=== PATIENT | female | born 1940 | race Caucasian/White ===

== ENCOUNTER → 2020-02-29 | Outpatient (CLI) | payer MEDICARE, OTHER ==
[~2020-02-29] MED LIST: ALDACTONE25 MG PO; ANAFRANIL50 MG PO; ASPIR 8181 MG PO; AZOR 10-40 MG1 EACH PO; BENADRYL25 MG PO; CLONAZEPAM 0.50.5 M1 PO; CLONIDINE0.1 PO; COREG25 MG PO; FLEXERIL PO; GEODON80 MG PO; LAMICTAL100 MG PO; NORCO 10-325 T1 EACH PO; PAMELOR50 MG PO; PAXIL CR37.5 MG PO
== END ==
LOC: M.RAD 14:47
PROVIDERS: ATTEND Family Medicine
DX: M81.8 Other osteoporosis without current pathological fracture (principal); M95.4 Acquired deformity of chest and rib

== ENCOUNTER → 2020-09-24 | Outpatient (CLI) | payer MEDICARE, OTHER | LOC: M.RAD 14:21 | PROVIDERS: ATTEND Family Medicine | DX: M48.061 Spinal stenosis, lumbar region without neurogenic claudication (principal); M25.78 Osteophyte, vertebrae; M85.88 Other specified disorders of bone density and structure, other site ==

== ENCOUNTER → 2020-10-02 | Outpatient (CLI) | payer MEDICARE, OTHER | LOC: M.MRI 10-01 17:30 | PROVIDERS: ATTEND Family Medicine | DX: S32.000A Wedge compression fracture of unspecified lumbar vertebra, initial encounter for closed fracture (principal); M48.04 Spinal stenosis, thoracic region; M51.37 Other intervertebral disc degeneration, lumbosacral region; M48.061 Spinal stenosis, lumbar region without neurogenic claudication; M47.816 Spondylosis without myelopathy or radiculopathy, lumbar region; X58.XXXA Exposure to other specified factors, initial encounter; Y93.89 Activity, other specified; Y92.89 Other specified places as the place of occurrence of the external cause; Y99.8 Other external cause status ==

== ENCOUNTER → 2021-01-07 | Outpatient (CLI) | payer MEDICARE, OTHER | LOC: M.ULTRA 16:08 | PROVIDERS: ATTEND Family Medicine | DX: M71.21 Synovial cyst of popliteal space [Baker], right knee (principal); M25.561 Pain in right knee; M79.89 Other specified soft tissue disorders; Z96.651 Presence of right artificial knee joint ==